=== PATIENT | male | born 1970 | race Caucasian/White ===

== ENCOUNTER 2017-08-17 11:59 | Inpatient (IN) | payer OTHER ==
[2017-08-17 14:04] VITALS: BMI 25.7
--- NOTE | 2017-08-17 14:11 | HP ---
COWS - Scale Resting Pulse: 1= [place] 81-100 Sweatin=Flushed/Facial Moisture Restless Observation: 3= Extraneous Movement Pupil Size: 2= Moderately Dilated Bone or Joint Aches: 2= Severe Diffuse Aches Runny Nose/ Eye Tearin= Runny Nose/Eyes GI Upset > 30mins: 3= Vomiting/Diarrhea Tremor Observation: 2= Slight Tremor Visible Yawning Observation: 2= >3x During Session Anxiety or Irritability: 2=Irritable/Anxious Goose Flesh Skin: 0=Smooth Skin COWS Score: 21 Admission ROS BHS - HPI Chief Complaint: I NEED HELP TO STOP USING HEROIN,COCAINE AND MARIJUANA,WITHDRAWAL SYMPTOM, SEEKING DETOX,LAST TREATMENT 2 WEEKS CORNER STONE NOT COMPLETED HEPATITIS C NICOTINE DEPENDENCE LONGEST PERIOD OF SOBRIETY 4 YEARS Allergies/Adverse Reactions: Allergies Allergy/AdvReac Type Severity Reaction Status Date / Time No Known Allergies Allergy Verified 08/17/17 14:11 History of Present Illness: THIS 47 YEARS OLD MALE WITH HEROIN,COCAINE AND MARIJUANA,WITHDRAWAL SYMPTOM, SEEKING DETOX MENTIONED Exam Limitations: No Limitations - Ebola screening Have you traveled outside of the country in the last 21 days: No Have you had contact with anyone from an Ebola affected area: No Have you been sick,other than usual withdrawal symptoms: No Do you have a fever: No - Review of Systems Constitutional: Chills, Diaphoresis, Loss of Appetite, Malaise, Night Sweats, Changes in sleep, Weakness, Unintentional Wgt. Loss EENT: reports: Tearing, Nose Congestion Respiratory: reports: No Symptoms reported Cardiac: reports: Palpitations GI: reports: Diarrhea, Nausea, Vomiting, Abdominal cramping : reports: No Symptoms Reported Musculoskeletal: reports: Back Pain, Joint Pain, Muscle Pain, Joint Stiffness Integumentary: reports: Dryness Neuro: reports: Headache, Tremors Endocrine: reports: No Symptoms Reported Hematology: reports: No Symptoms Reported Psychiatric: reports: No Sypmtoms Reported, Judgement Intact, Mood/Affect Appropiate, Orientated x3 Patient History - Patient Medical History Hx Anemia: No Hx Asthma: Yes (ON [facility] IN[facility]ALER) Hx Chronic Obstructive Pulmonary Disease (COPD): No Hx Cancer: No Hx Cardiac Disorders: No Hx Congestive Heart Failure: No Hx Hypertension: No Hx Hypercholesterolemia: No Hx Pacemaker: No HX Cerebrovascular Accident: No Hx Seizures: No Hx Dementia: No Hx Diabetes: No Hx Gastrointestinal Disorders: No Hx Liver Disease: No Hx Genitourinary Disorders: No Hx Sexually Transmitted Disorders: No Hx Renal Disease (ESRD): No Hx Thyroid Disease: No Hx Human Immunodeficiency Virus (HIV): No (LAST 1017 NEGATIVE ) Hx Hepatitis C: Yes (NO TREATMENT YET SEN BY PMD) Hx Depression: No Hx Suicide Attempt: No Hx Bipolar Disorder: No Hx Schizophrenia: No Other Medical History: NO SUICIDAL,NO HOMICIDAL - Patient Surgical History Past Surgical History: Yes Other Surgical History: LASER RX IN 1994 POST TRAUMA - PPD History Previous Implant?: Yes Documented Results: Positive w/o proof Implanted On Prior [facility] Admission?: No PPD to be Administered?: No - Smoking Cessation Smoking history: Current every day smoker Have you smoked in the past 12 months: Yes Aproximately how many cigarettes per day: 15 Cigars Per Day: 0 Hx Chewing Tobacco Use: No Initiated information on smoking cessation: Yes 'Breaking Loose' booklet given: 08/17/17 - Substance & Tx. History Hx Alcohol Use: No Hx Substance Use: Yes Substance Use Type: Cocaine, Heroin, Marijuana Hx Substance Use Treatment: Yes ([facility]I 2 WEEKS AGO NO COMPLETED) - Substances Abused Heroin Route: Injection Frequency: Daily Amount used: 15 TO 20 BAGS Age of first use: 16 Date of Last Use: 08/17/17 Cocaine Route: Injection Frequency: Daily Amount used: 100$ Age of first use: 16 Date of Last Use: 08/17/17 Marijuana/Hashish Route: Smoking Frequency: 1-2 times per week Amount used: 10$ Age of first use: 14 Date of Last Use: 08/08/17 Family Disease History - Family Disease History Family History: Denies Admission Physical Exam S - Vital Signs Vital Signs: Vital Signs - 24 hr 08/17/17 14:02 Temperature 97.6 F Pulse Rate 68 Respiratory 18 Rate Blood Pressure 116/72 - Physical General Appearance: Yes: Moderate Distress, Tremorous, Irritable, Sweating, Anxious HEENTM: Yes: Normal ENT Inspection, KOLBY, Pharynx Normal Respiratory: Yes: Within Normal Limits, Lungs Clear, Normal Breath Sounds Neck: Yes: Within Normal Limits, No masses,lesions,Nodules, Supple, Trachea in good position Breast: Yes: Within Normal Limits Cardiology: Yes: Within Normal Limits, Regular Rhythm, Regular Rate, S1, S2 Abdominal: Yes: Within Normal Limits, Normal Bowel Sounds, Non Tender, Flat, Soft Genitourinary: Yes: Within Normal Limits Back: Yes: Normal Inspection, Muscle Spasm Musculoskeletal: Yes: full range of Motion, Back pain, Joint Stiffness, Muscle Pain Extremities: Yes: Within Normal Limits, Tremors Neurological: Yes: patternmaker bench II-XII NML intact, Fully Oriented, Alert, Motor Strength 5/5 Integumentary: Yes: Dry, Track Abbasi (CELLULITITIS BOTH CUBITAL AREA) Lymphatic: Yes: Within Normal Limits - Diagnostic (1) Opioid dependence with withdrawal Current Visit: Yes Status: Acute (2) Cocaine dependence Current Visit: Yes Status: Acute (3) Cannabis dependence Current Visit: Yes Status: Acute (4) Nicotine dependence Current Visit: Yes Status: Acute (5) Weight loss Current Visit: Yes Status: Acute Cleared for Admission [facility] - Detox or Rehab [facility] Level of Care: Medically Managed Detox Regimen/Protocol: Methadone [facility] Breath Alcohol Content Breath Alcohol Content: 0 Urine Drug Screen - Results Drug Screen Negative: No Urine Drug Screen Results: THC-Marijuana, BRIGITTE-Cocaine, OPI-Opiates
[2017-08-17] MEDS ORDERED: ACETAMINOPHEN 325 MG TABLET (FP) PO PRN (14:26)
[2017-08-17] MEDS ORDERED: MENTHOL/PHENOL 1 EACH UD MM PRN (14:26)
[2017-08-17] MEDS ORDERED: NICOTINE POLACRILEX 2 MG GUM BC PRN (14:26)
[2017-08-17] MEDS ORDERED: MAGNESIUM HYDROX 2400MG/30ML ORAL SUSPENSION 30 ML CUP PO PRN (14:26)
[2017-08-17] MEDS ORDERED: LOPERAMIDE HCL 2 MG CAPSULE PO PRN (14:26)
[2017-08-17] MEDS ORDERED: P-EPHED 60MG/TRIPROLIDI 2.5MG TABLET PO PRN (14:26)
[2017-08-17] MEDS ORDERED: guaiFENesin/D-METHORPHAN HB 10 ML UNIT-DOSE CUPS PO PRN (14:26)
[2017-08-17] MEDS ORDERED: MAGNESIUM CITRATE 300 ML BOTTLE PO PRN (14:26)
[2017-08-17] MEDS ORDERED: METHADONE HCL 10 MG TABLET (FOR DETOX USE ONLY) PO ONE ×2 (14:26→23:00)
[2017-08-17] MEDS ORDERED: MAG HYDROX/AL HYDROX/SIMETH 30 ML UNIT-DOSE CUP PO PRN (14:26)
[2017-08-17] MEDS ORDERED: IBUPROFEN 400 MG TABLET (FP) PO PRN (14:26)
--- NOTE | 2017-08-17 14:37 | PN ---
BHS Progress Note Note: PATIENT FIGUEROA CELLULITIS BOTH FOREARM,ON KEFLEX 500 MGS PO Q6HRS FOR 7 DAYS
[2017-08-17] MEDS: diazePAM 5 MG TABLET PO PRN ×2 (15:51→22:21)
[2017-08-17] MEDS: NICOTINE 21 MG/24 HOURS TOPICAL PATCH TD SCH (15:52)
[2017-08-17 16:31] LABS: URINE APPEARANCE CLEAR; URINE BILIRUBIN NEGATIVE (NEGATIVE); URINE BLOOD NEGATIVE (NEGATIVE); URINE COLOR YELLOW; URINE GLUCOSE (UA) NEGATIVE (NEGATIVE); URINE KETONE NEGATIVE (NEGATIVE); URINE LEUK ESTERASE NEGATIVE (NEGATIVE); URINE NITRITE NEGATIVE (NEGATIVE); URINE PROTEIN NEGATIVE (NEGATIVE); URINE UROBILINOGEN 4.0 E.U/dl mg/dL (0.2-1.0)
[2017-08-17] MEDS: CEPHALEXIN MONOHYDRATE 500 MG CAPSULE (UD) PO SCH ×2 (18:30→23:37)
[2017-08-17] MEDS: THIAMINE HCL 100 MG TABLET (FP) PO SCH (22:21)
[2017-08-17] MEDS: CYCLOBENZAPRINE HCL 10 MG TABLET (FP) PO PRN (22:21)
[2017-08-17] MEDS: cloNIDine HCL 0.1 MG TABLET PO SCH (22:21)
[2017-08-18] MEDS: CEPHALEXIN MONOHYDRATE 500 MG CAPSULE (UD) PO SCH ×4 (05:24→23:19)
[2017-08-18] MEDS: diazePAM 5 MG TABLET PO PRN (05:24)
[2017-08-18 09:54] LABS: HEMATOCRIT 43.2 % (35.4-49); HEMOGLOBIN 14.1 GM/dL (11.7-16.9); MCH 31.9 pg (25.7-33.7); MCHC 32.6 g/dl (32.0-35.9); MEAN CELL VOLUME 97.9 fl (80-96); MEAN PLT VOLUME 8.4 fl (7.5-11.1); PLATELET COUNT 248 K/MM3 (134-434); RBC 4.41 M/mm3 (4.00-5.60); RDW 14.4 % (11.9-15.9); WHITE BLOOD COUNT 4.2 K/mm3 (4.0-10.0)
[2017-08-18] MEDS ORDERED: METHADONE HCL 10 MG TABLET (FOR DETOX USE ONLY) PO ONE (10:00)
[2017-08-18] MEDS: PRENATAL VITAMINS W/ FOLIC ACID TABLET (FP) PO SCH (10:16)
[2017-08-18] MEDS: cloNIDine HCL 0.1 MG TABLET PO SCH ×2 (10:16→22:13)
[2017-08-18] MEDS: NICOTINE 21 MG/24 HOURS TOPICAL PATCH TD SCH (10:17)
[2017-08-18 10:19] LABS: ALBUMIN 2.8 g/dl (3.4-5.0); ANION GAP 5 (8-16); BLOOD UREA NITROGEN 12 mg/dL (7-18); CHLORIDE 109 mmol/L (98-107); CO2 29 mmol/L (21-32); GLUCOSE,RANDOM 93 mg/dL (74-106); POTASSIUM 3.9 mmol/L (3.5-5.1); SODIUM 143 mmol/L (136-145)
[2017-08-18 10:21] LABS: ALK PHOS 87 U/L (45-117); BILIRUBIN,TOTAL 0.4 mg/dL (0.2-1.0); CREATININE 0.8 mg/dL (0.7-1.3); SGOT/AST 34 U/L (15-37); SGPT/ALT 40 U/L (12-78); TOT PROT 5.8 g/dl (6.4-8.2)
--- NOTE | 2017-08-18 10:38 | EKG ---
Test Reason : Blood Pressure : / mmHG Vent. Rate : 070 BPM Atrial Rate : 070 BPM P-R Int : 116 ms QRS Dur : 084 ms QT Int : 410 ms P-R-T Axes : 075 073 067 degrees QTc Int : 442 ms NORMAL SINUS RHYTHM NORMAL ECG NO PREVIOUS ECGS AVAILABLE Confirmed by RICHAR ALCANTAR MD ([id number]) on 08/18/2017 10:38:12 AM Referred By: Confirmed By:RICHAR ALCANTAR MD
--- NOTE | 2017-08-18 14:10 | PN ---
BHS COWS - Scale Resting Pulse: 0= [place] 80 or Below Sweatin= Chills/Flushing Restless Observation: 0= Sits Still Pupil Size: 2= Moderately Dilated Bone or Joint Aches: 4=Acute Joint/Muscle Pain Runny Nose/ Eye Tearin= Nasal Congestion GI Upset > 30mins: 1= Stomach Cramp Tremor Observation of Outstretched Hands: 1= Tremor [place], Not Seen Yawning Observation: 1= 1-2x During Session Anxiety or Irritability: 2=Irritable/Anxious Goose Flesh Skin: 0=Smooth Skin COWS Score: 13 BHS Progress Note (SOAP) Subjective: SLIGHT ANXIETY,SWEATS, DETOX PROCEEDING WELL. Objective: 08/18/17 14:09 Vital Signs Temperature 98.8 F 08/18/17 13:39 Pulse Rate 94 H 08/18/17 13:39 Respiratory Rate 20 08/18/17 13:39 Blood Pressure 98/70 08/18/17 13:39 O2 Sat by Pulse Oximetry (%) Laboratory Last Values WBC 4.2 K/mm3 (4.0-10.0) 08/18/17 07:30 RBC 4.41 M/mm3 (4.00-5.60) 08/18/17 07:30 Hgb 14.1 GM/dL (11.7-16.9) 08/18/17 07:30 Hct 43.2 % (35.4-49) 08/18/17 07:30 MCV 97.9 fl (80-96) H 08/18/17 07:30 MCH 31.9 pg (25.7-33.7) 08/18/17 07:30 MCHC 32.6 g/dl (32.0-35.9) 08/18/17 07:30 RDW 14.4 % (11.9-15.9) 08/18/17 07:30 Plt Count 248 K/MM3 (134-434) 08/18/17 07:30 MPV 8.4 fl (7.5-11.1) 08/18/17 07:30 Sodium 143 mmol/L (136-145) 08/18/17 07:30 Potassium 3.9 mmol/L (3.5-5.1) 08/18/17 07:30 Chloride 109 mmol/L (98-107) H 08/18/17 07:30 Carbon Dioxide 29 mmol/L (21-32) 08/18/17 07:30 Anion Gap 5 (8-16) L 08/18/17 07:30 BUN 12 mg/dL (7-18) 08/18/17 07:30 Creatinine 0.8 mg/dL (0.7-1.3) 08/18/17 07:30 Creat Clearance w eGFR > 60 (>60) 08/18/17 07:30 Random Glucose 93 mg/dL (74-106) 08/18/17 07:30 Calcium 8.0 mg/dL (8.5-10.1) L 08/18/17 07:30 Total Bilirubin 0.4 mg/dL (0.2-1.0) 08/18/17 07:30 AST 34 U/L (15-37) 08/18/17 07:30 ALT 40 U/L (12-78) 08/18/17 07:30 Alkaline Phosphatase 87 U/L (45-117) 08/18/17 07:30 Total Protein 5.8 g/dl (6.4-8.2) L 08/18/17 07:30 Albumin 2.8 g/dl (3.4-5.0) L 08/18/17 07:30 Urine Color Yellow 08/17/17 15:44 Urine Appearance Clear 08/17/17 15:44 Urine pH 6.0 (5.0-8.0) 08/17/17 15:44 Ur Specific [place] 1.023 (1.001-1.035) 08/17/17 15:44 Urine Protein Negative (NEGATIVE) 08/17/17 15:44 Urine Glucose (UA) Negative (NEGATIVE) 08/17/17 15:44 Urine Ketones Negative (NEGATIVE) 08/17/17 15:44 Urine Blood Negative (NEGATIVE) 08/17/17 15:44 Urine Nitrite Negative (NEGATIVE) 08/17/17 15:44 Urine Bilirubin Negative (NEGATIVE) 08/17/17 15:44 Urine Urobilinogen 4.0 e.u/dl mg/dL (0.2-1.0) 08/17/17 15:44 Ur Leukocyte Esterase Negative (NEGATIVE) 08/17/17 15:44 RPR Titer Nonreactive (NONREACTIVE) 08/18/17 07:30 Assessment: 08/18/17 14:10 WITHDRAWAL SX Plan: CONTINUE DETOX
[2017-08-18] MEDS: CYCLOBENZAPRINE HCL 10 MG TABLET (FP) PO PRN (22:12)
[2017-08-18] MEDS: THIAMINE HCL 100 MG TABLET (FP) PO SCH (22:12)
[2017-08-19] MEDS: CEPHALEXIN MONOHYDRATE 500 MG CAPSULE (UD) PO SCH ×4 (05:43→23:31)
[2017-08-19] MEDS ORDERED: METHADONE HCL 5 MG TABLET (FOR DETOX USE ONLY) PO ONE (10:00)
[2017-08-19] MEDS: PRENATAL VITAMINS W/ FOLIC ACID TABLET (FP) PO SCH (10:24)
[2017-08-19] MEDS: NICOTINE 21 MG/24 HOURS TOPICAL PATCH TD SCH (10:24)
[2017-08-19] MEDS: cloNIDine HCL 0.1 MG TABLET PO SCH ×2 (10:24→22:27)
--- NOTE | 2017-08-19 11:01 | PN ---
BHS COWS - Scale Resting Pulse: 0= [place] 80 or Below Sweatin= Chills/Flushing Restless Observation: 3= Extraneous Movement Pupil Size: 0= Normal to Room Light Bone or Joint Aches: 4=Acute Joint/Muscle Pain Runny Nose/ Eye Tearin= Nasal Congestion GI Upset > 30mins: 1= Stomach Cramp Tremor Observation of Outstretched Hands: 1= Tremor [place], Not Seen Yawning Observation: 2= >3x During Session Anxiety or Irritability: 2=Irritable/Anxious Goose Flesh Skin: 0=Smooth Skin COWS Score: 15 BHS Progress Note (SOAP) Subjective: ANXIETY,CHILLS,INTERMITTENT SLEEP. Objective: 08/19/17 11:01 Vital Signs Temperature 98.0 F 08/19/17 10:10 Pulse Rate 60 08/19/17 10:10 Respiratory Rate 18 08/19/17 10:10 Blood Pressure 110/79 08/19/17 10:10 O2 Sat by Pulse Oximetry (%) Laboratory Last Values WBC 4.2 K/mm3 (4.0-10.0) 08/18/17 07:30 RBC 4.41 M/mm3 (4.00-5.60) 08/18/17 07:30 Hgb 14.1 GM/dL (11.7-16.9) 08/18/17 07:30 Hct 43.2 % (35.4-49) 08/18/17 07:30 MCV 97.9 fl (80-96) H 08/18/17 07:30 MCH 31.9 pg (25.7-33.7) 08/18/17 07:30 MCHC 32.6 g/dl (32.0-35.9) 08/18/17 07:30 RDW 14.4 % (11.9-15.9) 08/18/17 07:30 Plt Count 248 K/MM3 (134-434) 08/18/17 07:30 MPV 8.4 fl (7.5-11.1) 08/18/17 07:30 Sodium 143 mmol/L (136-145) 08/18/17 07:30 Potassium 3.9 mmol/L (3.5-5.1) 08/18/17 07:30 Chloride 109 mmol/L (98-107) H 08/18/17 07:30 Carbon Dioxide 29 mmol/L (21-32) 08/18/17 07:30 Anion Gap 5 (8-16) L 08/18/17 07:30 BUN 12 mg/dL (7-18) 08/18/17 07:30 Creatinine 0.8 mg/dL (0.7-1.3) 08/18/17 07:30 Creat Clearance w eGFR > 60 (>60) 08/18/17 07:30 Random Glucose 93 mg/dL (74-106) 08/18/17 07:30 Calcium 8.0 mg/dL (8.5-10.1) L 08/18/17 07:30 Total Bilirubin 0.4 mg/dL (0.2-1.0) 08/18/17 07:30 AST 34 U/L (15-37) 08/18/17 07:30 ALT 40 U/L (12-78) 08/18/17 07:30 Alkaline Phosphatase 87 U/L (45-117) 08/18/17 07:30 Total Protein 5.8 g/dl (6.4-8.2) L 08/18/17 07:30 Albumin 2.8 g/dl (3.4-5.0) L 08/18/17 07:30 Urine Color Yellow 08/17/17 15:44 Urine Appearance Clear 08/17/17 15:44 Urine pH 6.0 (5.0-8.0) 08/17/17 15:44 Ur Specific [place] 1.023 (1.001-1.035) 08/17/17 15:44 Urine Protein Negative (NEGATIVE) 08/17/17 15:44 Urine Glucose (UA) Negative (NEGATIVE) 08/17/17 15:44 Urine Ketones Negative (NEGATIVE) 08/17/17 15:44 Urine Blood Negative (NEGATIVE) 08/17/17 15:44 Urine Nitrite Negative (NEGATIVE) 08/17/17 15:44 Urine Bilirubin Negative (NEGATIVE) 08/17/17 15:44 Urine Urobilinogen 4.0 e.u/dl mg/dL (0.2-1.0) 08/17/17 15:44 Ur Leukocyte Esterase Negative (NEGATIVE) 08/17/17 15:44 RPR Titer Nonreactive (NONREACTIVE) 08/18/17 07:30 Assessment: 08/19/17 11:01 WITHDRAWAL SX Plan: CONTINUE DETOX
[2017-08-19] MEDS: THIAMINE HCL 100 MG TABLET (FP) PO SCH (22:29)
[2017-08-20] MEDS: CEPHALEXIN MONOHYDRATE 500 MG CAPSULE (UD) PO SCH ×4 (06:15→23:03)
[2017-08-20] MEDS ORDERED: METHADONE HCL 5 MG TABLET (FOR DETOX USE ONLY) PO ONE (10:00)
[2017-08-20] MEDS: PRENATAL VITAMINS W/ FOLIC ACID TABLET (FP) PO SCH (10:21)
[2017-08-20] MEDS: NICOTINE 21 MG/24 HOURS TOPICAL PATCH TD SCH (10:22)
[2017-08-20] MEDS: cloNIDine HCL 0.1 MG TABLET PO SCH ×2 (10:22→22:26)
--- NOTE | 2017-08-20 11:36 | PN ---
BHS Progress Note (SOAP) Subjective: ANXIETY,SWEATS,INTERMITTENT SLEEP. Objective: 08/20/17 11:35 Vital Signs Temperature 98.9 F 08/20/17 09:16 Pulse Rate 71 08/20/17 09:16 Respiratory Rate 18 08/20/17 09:16 Blood Pressure 109/73 08/20/17 09:16 O2 Sat by Pulse Oximetry (%) Laboratory Last Values WBC 4.2 K/mm3 (4.0-10.0) 08/18/17 07:30 RBC 4.41 M/mm3 (4.00-5.60) 08/18/17 07:30 Hgb 14.1 GM/dL (11.7-16.9) 08/18/17 07:30 Hct 43.2 % (35.4-49) 08/18/17 07:30 MCV 97.9 fl (80-96) H 08/18/17 07:30 MCH 31.9 pg (25.7-33.7) 08/18/17 07:30 MCHC 32.6 g/dl (32.0-35.9) 08/18/17 07:30 RDW 14.4 % (11.9-15.9) 08/18/17 07:30 Plt Count 248 K/MM3 (134-434) 08/18/17 07:30 MPV 8.4 fl (7.5-11.1) 08/18/17 07:30 Sodium 143 mmol/L (136-145) 08/18/17 07:30 Potassium 3.9 mmol/L (3.5-5.1) 08/18/17 07:30 Chloride 109 mmol/L (98-107) H 08/18/17 07:30 Carbon Dioxide 29 mmol/L (21-32) 08/18/17 07:30 Anion Gap 5 (8-16) L 08/18/17 07:30 BUN 12 mg/dL (7-18) 08/18/17 07:30 Creatinine 0.8 mg/dL (0.7-1.3) 08/18/17 07:30 Creat Clearance w eGFR > 60 (>60) 08/18/17 07:30 Random Glucose 93 mg/dL (74-106) 08/18/17 07:30 Calcium 8.0 mg/dL (8.5-10.1) L 08/18/17 07:30 Total Bilirubin 0.4 mg/dL (0.2-1.0) 08/18/17 07:30 AST 34 U/L (15-37) 08/18/17 07:30 ALT 40 U/L (12-78) 08/18/17 07:30 Alkaline Phosphatase 87 U/L (45-117) 08/18/17 07:30 Total Protein 5.8 g/dl (6.4-8.2) L 08/18/17 07:30 Albumin 2.8 g/dl (3.4-5.0) L 08/18/17 07:30 Urine Color Yellow 08/17/17 15:44 Urine Appearance Clear 08/17/17 15:44 Urine pH 6.0 (5.0-8.0) 08/17/17 15:44 Ur Specific [place] 1.023 (1.001-1.035) 08/17/17 15:44 Urine Protein Negative (NEGATIVE) 08/17/17 15:44 Urine Glucose (UA) Negative (NEGATIVE) 08/17/17 15:44 Urine Ketones Negative (NEGATIVE) 08/17/17 15:44 Urine Blood Negative (NEGATIVE) 08/17/17 15:44 Urine Nitrite Negative (NEGATIVE) 08/17/17 15:44 Urine Bilirubin Negative (NEGATIVE) 08/17/17 15:44 Urine Urobilinogen 4.0 e.u/dl mg/dL (0.2-1.0) 08/17/17 15:44 Ur Leukocyte Esterase Negative (NEGATIVE) 08/17/17 15:44 RPR Titer Nonreactive (NONREACTIVE) 08/18/17 07:30 Assessment: 08/20/17 11:35 WITHDRAWAL SX Plan: CONTINUE DETOX
[2017-08-20] MEDS: THIAMINE HCL 100 MG TABLET (FP) PO SCH (22:26)
[2017-08-20] MEDS: CYCLOBENZAPRINE HCL 10 MG TABLET (FP) PO PRN (22:27)
[2017-08-21] MEDS: CEPHALEXIN MONOHYDRATE 500 MG CAPSULE (UD) PO SCH ×5 (07:02→23:09)
[2017-08-21] MEDS ORDERED: METHADONE HCL 10 MG TABLET (FOR DETOX USE ONLY) PO ONE (10:00)
[2017-08-21] MEDS: cloNIDine HCL 0.1 MG TABLET PO SCH ×2 (10:19→22:22)
[2017-08-21] MEDS: NICOTINE 21 MG/24 HOURS TOPICAL PATCH TD SCH (10:19)
[2017-08-21] MEDS: PRENATAL VITAMINS W/ FOLIC ACID TABLET (FP) PO SCH (10:19)
--- NOTE | 2017-08-21 10:57 | PN ---
BHS Progress Note (SOAP) Subjective: DECREASED ANXIETY,SWEATS/CHILLS,IRRITABILITY. FATIGUE. OOB WITH STEADY GAIT.NAD. Objective: 08/21/17 10:55 Vital Signs Temperature 98.1 F 08/21/17 09:06 Pulse Rate 69 08/21/17 09:06 Respiratory Rate 18 08/21/17 09:06 Blood Pressure 117/68 08/21/17 09:06 O2 Sat by Pulse Oximetry (%) Laboratory Last Values WBC 4.2 K/mm3 (4.0-10.0) 08/18/17 07:30 RBC 4.41 M/mm3 (4.00-5.60) 08/18/17 07:30 Hgb 14.1 GM/dL (11.7-16.9) 08/18/17 07:30 Hct 43.2 % (35.4-49) 08/18/17 07:30 MCV 97.9 fl (80-96) H 08/18/17 07:30 MCH 31.9 pg (25.7-33.7) 08/18/17 07:30 MCHC 32.6 g/dl (32.0-35.9) 08/18/17 07:30 RDW 14.4 % (11.9-15.9) 08/18/17 07:30 Plt Count 248 K/MM3 (134-434) 08/18/17 07:30 MPV 8.4 fl (7.5-11.1) 08/18/17 07:30 Sodium 143 mmol/L (136-145) 08/18/17 07:30 Potassium 3.9 mmol/L (3.5-5.1) 08/18/17 07:30 Chloride 109 mmol/L (98-107) H 08/18/17 07:30 Carbon Dioxide 29 mmol/L (21-32) 08/18/17 07:30 Anion Gap 5 (8-16) L 08/18/17 07:30 BUN 12 mg/dL (7-18) 08/18/17 07:30 Creatinine 0.8 mg/dL (0.7-1.3) 08/18/17 07:30 Creat Clearance w eGFR > 60 (>60) 08/18/17 07:30 Random Glucose 93 mg/dL (74-106) 08/18/17 07:30 Calcium 8.0 mg/dL (8.5-10.1) L 08/18/17 07:30 Total Bilirubin 0.4 mg/dL (0.2-1.0) 08/18/17 07:30 AST 34 U/L (15-37) 08/18/17 07:30 ALT 40 U/L (12-78) 08/18/17 07:30 Alkaline Phosphatase 87 U/L (45-117) 08/18/17 07:30 Total Protein 5.8 g/dl (6.4-8.2) L 08/18/17 07:30 Albumin 2.8 g/dl (3.4-5.0) L 08/18/17 07:30 Urine Color Yellow 08/17/17 15:44 Urine Appearance Clear 08/17/17 15:44 Urine pH 6.0 (5.0-8.0) 08/17/17 15:44 Ur Specific [place] 1.023 (1.001-1.035) 08/17/17 15:44 Urine Protein Negative (NEGATIVE) 08/17/17 15:44 Urine Glucose (UA) Negative (NEGATIVE) 08/17/17 15:44 Urine Ketones Negative (NEGATIVE) 08/17/17 15:44 Urine Blood Negative (NEGATIVE) 08/17/17 15:44 Urine Nitrite Negative (NEGATIVE) 08/17/17 15:44 Urine Bilirubin Negative (NEGATIVE) 08/17/17 15:44 Urine Urobilinogen 4.0 e.u/dl mg/dL (0.2-1.0) 08/17/17 15:44 Ur Leukocyte Esterase Negative (NEGATIVE) 08/17/17 15:44 RPR Titer Nonreactive (NONREACTIVE) 08/18/17 07:30 HIV 1&2 Antibody Screen Negative 08/20/17 12:20 HIV P24 Antigen Negative 08/20/17 12:20 Assessment: 08/21/17 10:56 WITHDRAWAL SX Plan: CONTINUE DETOX
[2017-08-21] MEDS: THIAMINE HCL 100 MG TABLET (FP) PO SCH (22:21)
[2017-08-21] MEDS: CYCLOBENZAPRINE HCL 10 MG TABLET (FP) PO PRN (22:22)
[2017-08-21] MEDS ORDERED: hydrOXYzine PAMOATE 50 MG CAPSULE (FP) PO ONE (22:45)
[2017-08-22] MEDS ORDERED: METHADONE HCL 5 MG TABLET (FOR DETOX USE ONLY) PO ONE (06:00)
[2017-08-22] MEDS: CEPHALEXIN MONOHYDRATE 500 MG CAPSULE (UD) PO SCH ×4 (06:26→23:01)
[2017-08-22] MEDS: PRENATAL VITAMINS W/ FOLIC ACID TABLET (FP) PO SCH (10:29)
[2017-08-22] MEDS: cloNIDine HCL 0.1 MG TABLET PO SCH ×2 (10:29→21:30)
[2017-08-22] MEDS: NICOTINE 21 MG/24 HOURS TOPICAL PATCH TD SCH (10:29)
--- NOTE | 2017-08-22 13:11 | PN ---
BHS Progress Note (SOAP) Subjective: DECREASED ANXIETY,SWEATS,TREMORS. WANTS TO GO TO REHAB WHEN BED AVAILABLE. Objective: 08/22/17 13:10 Vital Signs Temperature 96.5 F L 08/22/17 09:41 Pulse Rate 80 08/22/17 09:41 Respiratory Rate 18 08/22/17 09:41 Blood Pressure 95/67 08/22/17 09:41 O2 Sat by Pulse Oximetry (%) Laboratory Last Values WBC 4.2 K/mm3 (4.0-10.0) 08/18/17 07:30 RBC 4.41 M/mm3 (4.00-5.60) 08/18/17 07:30 Hgb 14.1 GM/dL (11.7-16.9) 08/18/17 07:30 Hct 43.2 % (35.4-49) 08/18/17 07:30 MCV 97.9 fl (80-96) H 08/18/17 07:30 MCH 31.9 pg (25.7-33.7) 08/18/17 07:30 MCHC 32.6 g/dl (32.0-35.9) 08/18/17 07:30 RDW 14.4 % (11.9-15.9) 08/18/17 07:30 Plt Count 248 K/MM3 (134-434) 08/18/17 07:30 MPV 8.4 fl (7.5-11.1) 08/18/17 07:30 Sodium 143 mmol/L (136-145) 08/18/17 07:30 Potassium 3.9 mmol/L (3.5-5.1) 08/18/17 07:30 Chloride 109 mmol/L (98-107) H 08/18/17 07:30 Carbon Dioxide 29 mmol/L (21-32) 08/18/17 07:30 Anion Gap 5 (8-16) L 08/18/17 07:30 BUN 12 mg/dL (7-18) 08/18/17 07:30 Creatinine 0.8 mg/dL (0.7-1.3) 08/18/17 07:30 Creat Clearance w eGFR > 60 (>60) 08/18/17 07:30 Random Glucose 93 mg/dL (74-106) 08/18/17 07:30 Calcium 8.0 mg/dL (8.5-10.1) L 08/18/17 07:30 Total Bilirubin 0.4 mg/dL (0.2-1.0) 08/18/17 07:30 AST 34 U/L (15-37) 08/18/17 07:30 ALT 40 U/L (12-78) 08/18/17 07:30 Alkaline Phosphatase 87 U/L (45-117) 08/18/17 07:30 Total Protein 5.8 g/dl (6.4-8.2) L 08/18/17 07:30 Albumin 2.8 g/dl (3.4-5.0) L 08/18/17 07:30 Urine Color Yellow 08/17/17 15:44 Urine Appearance Clear 08/17/17 15:44 Urine pH 6.0 (5.0-8.0) 08/17/17 15:44 Ur Specific [place] 1.023 (1.001-1.035) 08/17/17 15:44 Urine Protein Negative (NEGATIVE) 08/17/17 15:44 Urine Glucose (UA) Negative (NEGATIVE) 08/17/17 15:44 Urine Ketones Negative (NEGATIVE) 08/17/17 15:44 Urine Blood Negative (NEGATIVE) 08/17/17 15:44 Urine Nitrite Negative (NEGATIVE) 08/17/17 15:44 Urine Bilirubin Negative (NEGATIVE) 08/17/17 15:44 Urine Urobilinogen 4.0 e.u/dl mg/dL (0.2-1.0) 08/17/17 15:44 Ur Leukocyte Esterase Negative (NEGATIVE) 08/17/17 15:44 RPR Titer Nonreactive (NONREACTIVE) 08/18/17 07:30 HIV 1&2 Antibody Screen Negative 08/20/17 12:20 HIV P24 Antigen Negative 08/20/17 12:20 Assessment: 08/22/17 13:11 WITHDRAWAL SX Plan: CONTINUE DETOX INCREASE PO FLUIDS.
[2017-08-22] MEDS ORDERED: hydrOXYzine PAMOATE 50 MG CAPSULE (FP) PO PRN (21:29)
[2017-08-22] MEDS: THIAMINE HCL 100 MG TABLET (FP) PO SCH (21:30)
[2017-08-23] MEDS: CEPHALEXIN MONOHYDRATE 500 MG CAPSULE (UD) PO SCH (05:42)
[2017-08-23 06:09] VITALS: BP 92/58; PULSE 56; TEMP 98.5
--- NOTE | 2017-08-23 17:58 | DS ---
[facility] Detox Discharge Summary Admission Date: 08/17/17 Discharge Date: 08/23/17 - History Present History: Cannabis Dependence, Cocaine Dependence, Opioid Dependence Additional Comments: NO BEDS AVAILABLE AT [facility] ([facility] AT THIS TIME. PATIENT WILL GO HOME FOR TIME BEING AND WILL APPLY FOR ADMISSION TO [facility] ON 08/25/2017. PATIENT WAS DISCHARGED FROM DETOX UNIT IN STABLE MEDICAL CONDITION. Pertinent Past History: Hep C, Nicotine Dependence, Weight Loss. - Physical Exam Results Vital Signs: Vital Signs Temperature 98.5 F 08/23/17 06:08 Pulse Rate 56 L 08/23/17 06:08 Respiratory Rate 18 08/23/17 06:08 Blood Pressure 92/58 08/23/17 06:08 O2 Sat by Pulse Oximetry (%) Pertinent Admission Physical Exam Findings: WITHDRAWAL SYMPTOMS. Laboratory Tests 08/17/17 08/18/17 08/18/17 15:44 07:30 07:30 WBC 4.2 RBC 4.41 Hgb 14.1 Hct 43.2 MCV 97.9 H MCH 31.9 MCHC 32.6 RDW 14.4 Plt Count 248 MPV 8.4 Sodium 143 Potassium 3.9 Chloride 109 H Carbon Dioxide 29 Anion Gap 5 L BUN 12 Creatinine 0.8 Creat Clearance w eGFR > 60 Random Glucose 93 Calcium 8.0 L Total Bilirubin 0.4 AST 34 ALT 40 Alkaline Phosphatase 87 Total Protein 5.8 L Albumin 2.8 L Urine Color Yellow Urine Appearance Clear Urine pH 6.0 Ur Specific [place] 1.023 Urine Protein Negative Urine Glucose (UA) Negative Urine Ketones Negative Urine Blood Negative Urine Nitrite Negative Urine Bilirubin Negative Urine Urobilinogen 4.0 e.u/dl Ur Leukocyte Esterase Negative RPR Titer HIV 1&2 Antibody Screen HIV P24 Antigen 08/18/17 08/20/17 07:30 12:20 WBC RBC Hgb Hct MCV MCH MCHC RDW Plt Count MPV Sodium Potassium Chloride Carbon Dioxide Anion Gap BUN Creatinine Creat Clearance w eGFR Random Glucose Calcium Total Bilirubin AST ALT Alkaline Phosphatase Total Protein Albumin Urine Color Urine Appearance Urine pH Ur Specific [place] Urine Protein Urine Glucose (UA) Urine Ketones Urine Blood Urine Nitrite Urine Bilirubin Urine Urobilinogen Ur Leukocyte Esterase RPR Titer Nonreactive HIV 1&2 Antibody Screen Negative HIV P24 Antigen Negative LABS NOTED. - Treatment Hospital Course: Detox Protocol Followed, Detoxed Safely, Responded well, Discharged Condition Good, Rehab Referral Accepted Patient has Accepted a Rehab Referral to: [facility] ([facility] . - Medication Discharge Medications: Ambulatory Orders NK [No Known Home Medication] 08/17/17 - Diagnosis (1) Cannabis dependence Status: Acute (2) Cocaine dependence Status: Acute Qualifiers: Substance use status: uncomplicated Qualified Code(s): F14.20 - Cocaine dependence, uncomplicated (3) Nicotine dependence Status: Acute Qualifiers: Nicotine product type: cigarettes Substance use status: in withdrawal Qualified Code(s): F17.213 - Nicotine dependence, cigarettes, with withdrawal (4) Opioid dependence with withdrawal Status: Acute (5) Weight loss Status: Acute - AMA Did Patient Leave Against Medical Advice: No
== END 2017-08-23 11:04 | disposition home or self-care (01) | DRG 773 ==
LOC: YASAS 11:59 → Y3N 15:01
PROVIDERS: ADMIT Internal Medicine; ATTEND Internal Medicine
PROC: HZ2ZZZZ Detoxification Services for Substance Abuse Treatment (ICD-10-PCS; principal; 2017-08-17)
DX: F11.23 Opioid dependence with withdrawal (principal); F14.20 Cocaine dependence, uncomplicated; F12.20 Cannabis dependence, uncomplicated; F17.213 Nicotine dependence, cigarettes, with withdrawal; J45.909 Unspecified asthma, uncomplicated; B18.2 Chronic viral hepatitis C; R76.11 Nonspecific reaction to tuberculin skin test without active tuberculosis; R63.4 Abnormal weight loss; Z68.25 Body mass index [BMI] 25.0-25.9, adult
CPT/HCPCS: 36415; 71046-TC; 80053; 81003; 85027; 86593; 87389; 93005; 93010

== ENCOUNTER 2023-06-19 17:52 | Inpatient (IN) | payer OTHER ==
[2023-06-19 18:16] VITALS: BMI 21.9
[2023-06-19] MEDS ORDERED: BISMUTH SUBSALICYLATE 524 MG/30 ML PO PRN (19:45)
[2023-06-19] MEDS ORDERED: NALOXONE HCL (KLOXXADO) 8 MG SPRAY NS PRN (19:45)
[2023-06-19] MEDS ORDERED: DICYCLOMINE HCL 10 MG CAPSULE PO PRN (19:45)
[2023-06-19] MEDS ORDERED: POLYETHYLENE GLYCOL (HEALTHYLAX) 3350 17 GM PACKET PO PRN (19:45)
[2023-06-19] MEDS ORDERED: methaDONE HCL 10 MG TABLET (FOR DETOX USE ONLY) PO ONE (19:45)
[2023-06-19] MEDS ORDERED: NALOXONE HCL 0.4 MG/ML VIAL IM PRN (19:45)
[2023-06-19] MEDS ORDERED: IBUPROFEN 600 MG TABLET (FP) PO PRN (19:45)
[2023-06-19] MEDS ORDERED: ONDANSETRON *ODT* 4 MG TABLET SL PRN (19:45)
[2023-06-19] MEDS ORDERED: ACETAMINOPHEN 325 MG TABLET (FP) PO PRN (19:45)
[2023-06-19] MEDS ORDERED: BENZOCAINE/MENTHOL (CHLORASEPTIC ) LOZENGE MM PRN (19:45)
[2023-06-19] MEDS ORDERED: IBUPROFEN 400 MG TABLET (FP) PO PRN (19:45)
[2023-06-19] MEDS ORDERED: MAG HYDROX/AL HYDROX/SIMETH 30 ML UNIT-DOSE CUP PO PRN (19:45)
[2023-06-19] MEDS ORDERED: MAGNESIUM HYDROX 2400MG/30ML ORAL SUSPENSION 30 ML CUP PO PRN (19:45)
[2023-06-19] MEDS ORDERED: BENZONATATE 200 MG CAPSULE PO PRN (19:45)
[2023-06-19] MEDS ORDERED: LOPERAMIDE HCL 2 MG CAPSULE PO PRN (19:45)
[2023-06-19] MEDS ORDERED: cloNIDine HCL 0.1 MG TABLET PO PRN (19:45)
[2023-06-19] MEDS ORDERED: guaiFENesin 600 MG TABLET.ER (FP) PO PRN (19:45)
[2023-06-19] MEDS ORDERED: methaDONE HCL 10 MG TABLET (FOR DETOX USE ONLY) ONE (21:13)
[2023-06-19] MEDS: MELATONIN 5 MG TABLETS PO SCH (21:28)
[2023-06-19] MEDS: THIAMINE HCL 100 MG TABLET (FP) PO SCH (21:28)
[2023-06-20 08:51] LABS: HEMATOCRIT 40.2 % (35.4-49); HEMOGLOBIN 13.1 GM/dL (11.7-16.9); MCH 29.5 pg (25.7-33.7); MCHC 32.5 g/dl (32.0-35.9); MEAN CELL VOLUME 90.7 fl (80-96); MEAN PLT VOLUME 7.8 fl (7.5-11.1); PLATELET COUNT 452 10^3/uL (134-434); RBC 4.43 M/mm3 (4.00-5.60); RDW 15.9 % (11.9-15.9); WHITE BLOOD COUNT 5.6 K/mm3 (4.0-10.0)
[2023-06-20 08:52] LABS: CHLORIDE 107 mmol/L (98-107); POTASSIUM 4.3 mmol/L (3.5-5.1); SODIUM 140 mmol/L (136-145)
[2023-06-20 08:57] LABS: ALBUMIN 3.3 g/dl (3.4-5.0); ANION GAP 8 mmol/L (4-13); CALCIUM 8.6 mg/dL (8.5-10.1); CO2 25 mmol/L (21-32)
[2023-06-20 08:58] LABS: BLOOD UREA NITROGEN 23.5 mg/dL (7-18); GLUCOSE,RANDOM 124 mg/dL (74-106)
[2023-06-20 09:00] LABS: SGOT/AST 10 U/L (15-37)
[2023-06-20 09:01] LABS: SGPT/ALT 15 U/L (13-61)
[2023-06-20 09:02] LABS: BILIRUBIN,TOTAL 0.2 mg/dL (0.2-1); TOT PROT 7.1 g/dl (6.4-8.2)
[2023-06-20 09:03] LABS: ALK PHOS 155 U/L (45-117)
[2023-06-20] MEDS: PRENATAL VITAMINS W/ FOLIC ACID TABLET (FP) PO SCH (10:45)
[2023-06-20] MEDS: MAGNESIUM OXIDE 400 MG TABLET (FP) PO SCH (11:00)
[2023-06-20] MEDS: MELATONIN 5 MG TABLETS PO SCH (22:20)
[2023-06-20] MEDS: hydrOXYzine PAMOATE 25 MG CAPSULE (FP) PO PRN (22:20)
[2023-06-20] MEDS: THIAMINE HCL 100 MG TABLET (FP) PO SCH (22:20)
[2023-06-20] MEDS: METHOCARBAMOL 500 MG TABLET PO PRN (22:20)
[2023-06-21 09:17] LABS: POTASSIUM 4.3 mmol/L (3.5-5.1)
[2023-06-21 09:34] LABS: BLOOD UREA NITROGEN 22.2 mg/dL (7-18)
[2023-06-21 09:37] LABS: CREATININE 0.9 mg/dL (0.55-1.3)
[2023-06-21] MEDS ORDERED: methaDONE HCL 10 MG TABLET (FOR DETOX USE ONLY) PO ONE (10:00)
[2023-06-21] MEDS: PRENATAL VITAMINS W/ FOLIC ACID TABLET (FP) PO SCH (10:14)
[2023-06-21] MEDS: METHOCARBAMOL 500 MG TABLET PO PRN ×2 (10:14→21:26)
[2023-06-21] MEDS: MAGNESIUM OXIDE 400 MG TABLET (FP) PO SCH (10:14)
[2023-06-21] MEDS: hydrOXYzine PAMOATE 25 MG CAPSULE (FP) PO PRN ×2 (10:14→21:26)
[2023-06-21] MEDS: DOCUSATE SODIUM 100 MG CAPSULE (FP) PO SCH ×2 (13:04→21:26)
[2023-06-21] MEDS: THIAMINE HCL 100 MG TABLET (FP) PO SCH (21:26)
[2023-06-21] MEDS: MELATONIN 5 MG TABLETS PO SCH (21:26)
[2023-06-22] MEDS: PRENATAL VITAMINS W/ FOLIC ACID TABLET (FP) PO SCH (10:21)
[2023-06-22] MEDS: MAGNESIUM OXIDE 400 MG TABLET (FP) PO SCH (10:21)
[2023-06-22] MEDS: DOCUSATE SODIUM 100 MG CAPSULE (FP) PO SCH ×2 (10:23→21:17)
[2023-06-22] MEDS: METHOCARBAMOL 500 MG TABLET PO PRN ×2 (10:23→21:17)
[2023-06-22] MEDS: hydrOXYzine PAMOATE 25 MG CAPSULE (FP) PO PRN (21:17)
[2023-06-22] MEDS: THIAMINE HCL 100 MG TABLET (FP) PO SCH (21:17)
[2023-06-22] MEDS: MELATONIN 5 MG TABLETS PO SCH (21:17)
[2023-06-23] MEDS ORDERED: methaDONE HCL 10 MG TABLET (FOR DETOX USE ONLY) PO ONE (10:00)
[2023-06-23] MEDS: MAGNESIUM OXIDE 400 MG TABLET (FP) PO SCH (10:16)
[2023-06-23] MEDS: PRENATAL VITAMINS W/ FOLIC ACID TABLET (FP) PO SCH (10:16)
[2023-06-23] MEDS: DOCUSATE SODIUM 100 MG CAPSULE (FP) PO SCH ×2 (10:16→22:44)
[2023-06-23] MEDS: hydrOXYzine PAMOATE 25 MG CAPSULE (FP) PO PRN (22:44)
[2023-06-23] MEDS: THIAMINE HCL 100 MG TABLET (FP) PO SCH (22:44)
[2023-06-23] MEDS: METHOCARBAMOL 500 MG TABLET PO PRN (22:44)
[2023-06-23] MEDS: MELATONIN 5 MG TABLETS PO SCH (22:44)
[2023-06-24] MEDS: MAGNESIUM OXIDE 400 MG TABLET (FP) PO SCH (09:49)
[2023-06-24] MEDS: METHOCARBAMOL 500 MG TABLET PO PRN ×2 (09:51→22:51)
[2023-06-24] MEDS: PRENATAL VITAMINS W/ FOLIC ACID TABLET (FP) PO SCH (09:52)
[2023-06-24] MEDS: DOCUSATE SODIUM 100 MG CAPSULE (FP) PO SCH (09:53)
[2023-06-24] MEDS: hydrOXYzine PAMOATE 25 MG CAPSULE (FP) PO PRN (22:51)
[2023-06-24] MEDS: THIAMINE HCL 100 MG TABLET (FP) PO SCH (22:51)
[2023-06-24] MEDS: MELATONIN 5 MG TABLETS PO SCH (22:52)
[2023-06-25] MEDS: PRENATAL VITAMINS W/ FOLIC ACID TABLET (FP) PO SCH (10:32)
[2023-06-25] MEDS: MAGNESIUM OXIDE 400 MG TABLET (FP) PO SCH (10:32)
[2023-06-25] MEDS: THIAMINE HCL 100 MG TABLET (FP) PO SCH (23:10)
[2023-06-25] MEDS: MELATONIN 5 MG TABLETS PO SCH (23:10)
[2023-06-25] MEDS: hydrOXYzine PAMOATE 25 MG CAPSULE (FP) PO PRN (23:10)
[2023-06-26] MEDS: MAGNESIUM OXIDE 400 MG TABLET (FP) PO SCH (10:25)
[2023-06-26] MEDS: PRENATAL VITAMINS W/ FOLIC ACID TABLET (FP) PO SCH (10:25)
[2023-06-26] MEDS: THIAMINE HCL 100 MG TABLET (FP) PO SCH (21:48)
[2023-06-26] MEDS: hydrOXYzine PAMOATE 25 MG CAPSULE (FP) PO PRN (21:49)
[2023-06-26] MEDS: MELATONIN 5 MG TABLETS PO SCH (21:49)
[2023-06-27] MEDS: PRENATAL VITAMINS W/ FOLIC ACID TABLET (FP) PO SCH (10:50)
[2023-06-27] MEDS: MELATONIN 5 MG TABLETS PO SCH (21:45)
[2023-06-27] MEDS: THIAMINE HCL 100 MG TABLET (FP) PO SCH (21:45)
[2023-06-28] MEDS: PRENATAL VITAMINS W/ FOLIC ACID TABLET (FP) PO SCH (09:31)
[2023-06-28 09:58] VITALS: BP 119/85; PULSE 80; RESP 17; TEMP 97.7
== END 2023-06-28 09:50 | disposition home or self-care (01) | DRG 773 ==
LOC: YASAS 17:52 → Y3N 20:30
PROVIDERS: ADMIT Allergy & Immunology; ATTEND Surgery
PROC: HZ2ZZZZ Detoxification Services for Substance Abuse Treatment (ICD-10-PCS; principal; 2023-06-19)
DX: F11.23 Opioid dependence with withdrawal (principal); F14.20 Cocaine dependence, uncomplicated; F12.20 Cannabis dependence, uncomplicated; F17.210 Nicotine dependence, cigarettes, uncomplicated; U07.1 COVID-19; J45.909 Unspecified asthma, uncomplicated; Z86.19 Personal history of other infectious and parasitic diseases; Z56.0 Unemployment, unspecified; Z59.00 Homelessness unspecified
CPT/HCPCS: 36415; 80048; 80053; 80307; 83036; 85027; 85032; 86780; 87635; 93005; 93010